=== PATIENT | male | born 2000 | race Caucasian/White ===

== ENCOUNTER 2022-07-28 22:12 | Emergency (ER) | payer SELFPAY ==
[2022-07-28 22:13] VITALS: BP 155/64; PULSE 110; RESP 16; TEMP 37; O2SAT 100; BMI 32.1
[2022-07-28 22:17] VITALS: BMI 21.7
--- NOTE | 2022-07-28 22:18 | XR_ITS ---
PROCEDURE INFORMATION: Exam: XR Right Foot Exam date and time: 07/28/2022 10:25 PM Age: 21 years old Clinical indication: Right; Patient HX: Generalized foot pain, fall; Additional info: Fall, pain TECHNIQUE: Imaging protocol: Radiologic exam of the Right foot. Views: 3 or more views. COMPARISON: CR XR ANKLE RT MIN 3V 07/28/2022 10:23 PM FINDINGS: Bones/joints: No acute fracture or malalignment. Lisfranc joint appears normal in these non-weightbearing radiographs. Query partial talocalcaneal coalition. Soft tissues: Unremarkable. IMPRESSION: 1. No evidence of acute osseous abnormality in the right foot. 2. Query partial talocalcaneal coalition.
--- NOTE | 2022-07-28 22:18 | XR_ITS ---
PROCEDURE INFORMATION: Exam: XR Right Ankle Exam date and time: 07/28/2022 10:23 PM Age: 21 years old Clinical indication: Right; Patient HX: Generalized ankle pain, fall; Additional info: Fall, pain TECHNIQUE: Imaging protocol: Radiologic exam of the Right ankle. Views: 3 or more views. COMPARISON: No relevant prior studies available. FINDINGS: Bones/joints: No acute fracture or malalignment. Ankle mortise appears intact. Soft tissues: Click soft tissue edema IMPRESSION: No evidence of acute osseous abnormality in the right ankle.
[2022-07-28 23:15] VITALS: BP 133/67; PULSE 83; RESP 14; O2SAT 96
--- NOTE | 2022-07-28 23:15 | [facility].EDLOEX ---
Discharge Plan Disposition Chief Complaint: Extremity Injury, Lower Prescriptions Prescriptions: No Action No Known Home Medications Referrals Follow up/Referrals: Jono Lomas MD [Primary Care Provider] - See instructions Clinical Impressions Clinical Impression: Ankle sprain and strain Instructions Patient Instructions: Sprain Discharge ED Provider: Magnus Gardner Lower Extremity Injury HPI General Chief Complaint: Extremity Injury, Lower Stated Complaint: AO 07/28 @2100 HURT RIGHT ANKLE Time Seen by Provider: 07/28/22 23:15 Mode of Arrival: Wheelchair Source of Information: Patient and Medical Record Limitations: No Limitations Description of Symptoms (Recalled from ER Triage Doc. by RN): Pt states he was chasing his daughter outside in the yard and rolled his right ankle and heard a pop RLL elevated and ice placed on ankle. No obvious deformity and pt able to extend and flex ankle w/ pain reported. Pedal pulse present. History of Present Illness HPI Narrative: running and has acute injury to rt ankle MD complaint: ankle injury Onset (ago): hour(s) Injury: Right: ankle and foot Type of Injury: hyperextension Place: home Severity: moderate Exacerbating factors: weight bearing and movement Context: running Associated symptoms: snap/pop sensation and able to partially bear weight Other symptoms: none Related Data Home Medications Medication Instructions Recorded Confirmed No Known Home Medications 07/28/22 07/28/22 Allergies Allergy/AdvReac Type Severity Reaction Status Date / Time vancomycin [VANCOMYCIN] Allergy Mild Verified 07/28/22 23:03 [facility] Social History Smoking Status: Never smoker alcohol intake: never current occupational status: employed Travel in the last 8 weeks: None ROS Obtained: Yes All systems reviewed & no additional complaints except as documented Physical Exam General General appearance: alert Head Head exam: normocephalic Eye Eye exam: Present PERRL and EOMI ENT ENT exam: Present mucous membranes moist Neck Neck exam: Absent trachea midline Respiratory Respiratory exam: Present normal lung sounds bilaterally Cardiovascular Cardiovascular exam: Present regular rate Abdominal Exam Abdominal exam: Present soft Expanded Lower Extremity Exam Right: Hip/Pelvis exam: Present pelvis stable Ankle exam: Present tenderness, swelling and other (achilles ok); Absent full ROM Neurological Exam Neurological exam: Present alert, oriented X3 and CN II-XII intact Psychiatric Psychiatric exam: Present normal affect Skin Skin exam: Absent rash Medical Decision Making Medical Records Medical records reviewed: Yes I reviewed the patient's medical records. Monty Inquiry Pt receiving controlled substance: No Vital Signs: 07/28/22 22:13 07/28/22 23:21 07/28/22 23:15 Temperature 98.6 F Temperature Source Oral Pulse Rate 83 Pulse Rate [Right Radial] 110 H Respiratory Rate 16 14 Blood Pressure 133/67 Blood Pressure [Right Arm] 155/64 H Blood Pressure Mean [Right Arm] 94 Blood Pressure Source Automatic Cuff Blood Pressure Source [Right Arm] Automatic Cuff Blood Pressure Position Sitting Blood Pressure Position [Right Arm] Sitting 02 Sat by Pulse Oximetry 100 96 Oxygen Delivery Method Room Air Room Air Room Air Orders (Tests/Meds): ED MEDICATIONS Discontinued Medications Generic Name Dose Route Start Last Admin Trade Name Freq PRN Reason Stop Dose Admin Acetaminophen 1,000 mg 07/28/22 22:58 07/28/22 23:03 Acetaminophen 500mg Tab PO 07/28/22 22:59 1,000 mg ONCE ONE Administration Ibuprofen 600 mg 07/28/22 22:58 07/28/22 23:03 Ibuprofen 600 Mg Tablet PO 07/28/22 22:59 600 mg ONCE ONE Administration ORDERS Category Date Time Status XR ankle RT min 3V Stat Exams 07/28/22 22:18 Completed XR foot RT min 3V Stat Exams 07/28/22 22:18 Comple
[2022-07-29 00:40] VITALS: BP 130/66; PULSE 70; RESP 14; TEMP 36.6; O2SAT 98
== END 2022-07-29 00:41 | disposition home or self-care (01) ==
PROVIDERS: Emergency Provider Emergency Medicine; PCP Family Medicine
DX: S93.401A Sprain of unspecified ligament of right ankle, initial encounter (principal); Z88.8 Allergy status to other drugs, medicaments and biological substances
CPT/HCPCS: 73610; 73630; 99283